=== PATIENT | female | born 1975 ===

== ENCOUNTER 2020-04-02 13:30 | Outpatient (RCR) | payer BC, SELFPAY ==
--- NOTE | 2020-03-12 15:09 | PTOPEVAL ---
INITIAL PHYSICAL THERAPY EVALUATION and PLAN OF CARE Thank you for referring Mya Vicente to [facility]. She will be seen in PT 1x/wk x 2 wks, skip a week, then 1x the 4th week. Please review, sign, date and return this plan of care SHITAL. I agree with and certify that the following plan of care is medically necessary. 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 Feels increase in urgency at times - increase in frequency. Previous Treatments Previous Treatments For This Problem in college Prior Level of Function Medications Home Meds (Include: OTC, RX, Vitamins, has Rx for vesticare, hormonal Herbals, Dose, Route,and Frequency) natural, Vit D, probiotic Query Text:Home Med Entries Will No Longer Recall From Past Visits. Home Meds Must Be Re-entered With Each Visit. Comments Additional Prior Level of Function likes to walk - will play Comments basketball with son Pain Assessment Timing of Pain Assessment Timing of Pain Assessment Assessment Self Report Self Report Pain Level 0 Pain Score Pain Score 0: Self Report Cervical and Lumbar ROM Lumbar ROM Lumbar ROM WNL Lumbar Comments equal SIJ mobility present Posture Posture Standing Position Posture Evaluation View posterior, anterior, and lateral Head/C-Spine Posture Forward Head Thoracic Spine Posture Neutral Lumbar Spine Posture Neutral Shoulder Posture (L) Elevated Scapula Posture (L) Neutral,(R) Neutral Pelvis Posture Neutral Weight Distribution Balanced Hip Posture (L) Neutral,(R) Neutral Knee Posture (L) Genu Valgus,(R) Genu Valgus Ankle/Foot Posture (L) Pronated,(R)
--- NOTE | 2020-03-26 09:58 | PCPTNOTE ---
Mya called to reschedule today's appointment. She has to work.
--- NOTE | 2020-04-09 11:08 | PCPTNOTE ---
Mya phoned yesterday to reschedule today's re-eval due to family emergency.
--- NOTE | 2020-04-23 08:28 | PCPTNOTE ---
Patient called & cancelled scheduled appointment this date due to having to sign son up for school.
--- NOTE | 2020-04-23 13:14 | PCPTNOTE ---
PHYSICAL THERAPY DISCHARGE SUMMARY Admitting Provider: Attending Provider: PHYSICIAN NOT ON STAFF Patient:Mya Vicente Date of :1975 Mya has had difficulty returning for any further treatments since 04/02/2020. Patient?s initial visit was on 03/12/2020 13:30 and she was seen for 2 follow up visits. I did phone her today to discuss how she was doing. She has reported an increase in her urgency again, especially with onset of her menstrual cycle. I tried to emphasize the importance of using her urge strategies that she had been successful with in the past on a consistent basis. Suggested that she work on decreasing daytime frequency first, then return to decreasing night time frequency with use of urge strategies. She will be discharged at this time since it has been difficult for her to come to PT due to scheduling conflicts and she had been successful with decreasing urinary frequency in March. The goals have been met as of 04/02/20 - but now she has regressed in regards to return of her nocturia. Thank you for referring Mya to [facility]. Please review, sign, date and return this discharge summary SHITAL. I have been updated about Mya's current status and I agree with discharge from the above service at this time. Referring Physician Date
== END 2020-04-23 14:00 | disposition home or self-care (01) ==
LOC: ANHPT 13:30
DX: Q64.79 Other congenital malformations of bladder and urethra (principal)
CPT/HCPCS: 97110; 97140; 97161